=== PATIENT | female | born 1925 | race American Indian/Alaskan Native ===

== ENCOUNTER 2016-08-20 10:52 | Day surgery (SDC) | payer MEDICARE ==
[~2016-08-20 10:52] MED LIST: ANCEF/STERILE WATER 2 GM/20 ML 2 GM/20 ML SYRINGE IV NR; NACL 0.9% 1000 ML 1,000 ML IV SCH
[2016-08-20] MEDS ORDERED: HEPARIN/NS 5000 UNIT/500ML(CATH LAB) 1,000 ML IR ONE (13:20)
[2016-08-20] MEDS ORDERED: ANCEF/STERILE WATER 2 GM/20 ML 2 GM/20 ML SYRINGE IV ONE (13:21)
[2016-08-20] MEDS ORDERED: XYLOCAINE 2% INFILTRATI ONE (13:21)
[2016-08-20] MEDS ORDERED: HEPARIN 10,000 UNITS/10 ML ONE (13:21)
[2016-08-20] MEDS ORDERED: NACL 0.9% 500 ML 500 ML ONE ×2 (15:11→16:29)
[2016-08-20] MEDS: SUBLIMAZE ONE ×3 (15:23→15:50)
[2016-08-20] MEDS: VERSED ONE ×3 (15:23→15:56)
[2016-08-20] MEDS ORDERED: VERSED ONE (15:55)
[2016-08-20] MEDS ORDERED: SUBLIMAZE ONE (15:55)
[2016-08-20] MEDS ORDERED: NITROGLYCERIN SYRINGE 3 ML ONE (15:59)
--- NOTE | 2016-08-20 16:26 | Short Stay Summary ---
Short Stay Documentation Date of service: 08/20/16 Narrative H&P: See H&P - History H&P: obtained from office - Allergies and Medications Current Medications: Allergies No Known Allergies Allergy (Unverified 08/20/16 10:52) Home Medications Medication Instructions Recorded Confirmed Last Taken Type Allopurinol [Allopurinol] 100 mg PO BID 08/20/16 08/20/16 08/19/16 History Amlodipine Besylate [Amlodipine 10 mg PO DAILY 08/20/16 08/20/16 08/20/16 History Besylate] Aspirin [Adult Low Dose Aspirin EC] 81 mg PO DAILY 08/20/16 08/20/16 08/20/16 History Calcitonin,[place],Synthetic 1 spray INHALATION DAILY 08/20/16 08/20/16 08/19/16 History [Calcitonin-[place]] Esomeprazole Magnesium [NexIUM] 40 mg PO QDAY 08/20/16 08/20/16 08/19/16 History Gabapentin [Gabapentin] 300 mg PO TID 08/20/16 08/20/16 08/19/16 History HYDROcodone/ACETAMINOPHEN 1 tab PO Q6H 08/20/16 08/20/16 08/19/16 History [Hydrocodon-Acetaminophen 5-325] Hydralazine HCl [Apresoline TAB] 50 mg PO Q8HR 08/20/16 08/20/16 08/20/16 History Latanoprost [Latanoprost] 1 drops OU DAILY 08/20/16 08/20/16 08/19/16 History Memantine HCl [Memantine HCl] 10 mg PO DAILY 08/20/16 08/20/16 08/20/16 History Metoprolol Tartrate [Metoprolol 25 mg PO BID 08/20/16 08/20/16 08/19/16 History Tartrate] Multivitamin with Folic Acid [One 400 mcg PO DAILY 08/20/16 08/20/16 08/19/16 History Daily Multivitamin Tablet] glipiZIDE [glipiZIDE XL] 2.5 mg PO DAILY 08/20/16 08/20/16 08/19/16 History Active Medications Cefazolin Sodium (Ancef/Sterile Water 2 Gm/20 Ml) 2 gm in 20 mls @ 80 mls/hr IV PREOP NR PRN Reason: Protocol Stop: 08/20/16 23:59 Last Admin: 08/20/16 15:22 Dose: 20 mls Sodium Chloride (Nacl 0.9% 1000 Ml) 1,000 mls @ 42 mls/hr IV DIRECT SHAYLA - Brief post op/procedure progress note Date of procedure: 08/20/16 Pre-op diagnosis: PVD with Left Lower Extremity Ulceration Post-op diagnosis: same Procedure: 1. Ultrasound-Guided Access Right Common Femoral Artery 2. Aortogram with Diagnostic Left Lower Extremity Arteriogram (No Previous Films for Comparison) 3. Angioplasty of Left Anterior Tibial Artery with 3 x 150 Balloon 4. Angioplasty of Left SFA and Popliteal Arteries with 5 x 250 Balloon 5. Closure of Right Femoral Arteriotomy with 6 [place] Angio-Seal 6. Radiologic Supervision with Interpretation Anesthesia: local, other (IV sedation) Surgeon: PETER URIBE Estimated blood loss: minimal Pathology: none Condition: stable - Disposition Condition at discharge: Good Disposition: DISCHARGED TO HOME OR SELFCARE Short Stay Discharge Plan Activity: other (no strenuous activity for 24 hours) Wound: remove dressing (24 hours) Follow up with: PETER URIBE MD [Staff Physician] - 14 Days
--- NOTE | 2016-08-20 16:27 | Operative Report ---
Operative Report Operative Report: Date of Procedure: 08/20/2016 Pre-operative Diagnosis: PVD with Left Foot Ulceration Post-operative Diagnosis: Same Procedure(s): 1. Ultrasound-Guided Access Right Common Femoral Artery 2. Aortogram with Diagnostic Left Lower Extremity Arteriogram (No Previous Films for Comparison) 3. Angioplasty of Left Anterior Tibial Artery with 3 x 150 Balloon 4. Angioplasty of Left SFA and Popliteal Arteries with 5 x 250 Balloon 5. Closure of Right Femoral Arteriotomy with 6 [place] Angio-Seal 6. Radiologic Supervision with Interpretation Surgeon: Pako Cameron M.D. Timber Repairer: None Anesthesia: Local and IV sedation EBL: Minimal Counts: Correct Complications: None Condition: Stable Specimen: None Indication: The patient is an 89-year-old female with a history of fracture left hip requiring total hip replacement. During her hospitalization she developed a left heel decubitus ulcer. The wound has healed poorly. Physical exam she had no pedal pulses. It is felt that she would benefit from a diagnostic arteriogram and possible intervention. She and her family were given the risk, benefits, and alternative procedures and consented to procedure. Angiographic Findings: The aortogram demonstrated bilateral renal arteries appeared widely patent. The aorta is widely patent however was quite tortuous. Bilateral common iliac arteries were tortuous but widely patent. The left external iliac and hypogastric arteries were widely patent. The common femoral and profunda artery was widely patent. The SFA and popliteal arteries were diffusely diseased with multiple segmental stenosis very from 30-80%. The patient had no visible tibial vessels with no visible pedal vessels. After intervention the SFA and popliteal arteries were patent with approximately 10% residual stenosis and a below-knee segment. The anterior tibial artery was patent with approximately 10% residual stenosis and flow briskly into the dorsalis pedis artery which supplied the lateral flow to the entire foot. Description of Procedure: The patient is brought into the laborer wrecking and salvaging and laid in supine position. After she was adequately sedated her right groin was prepped and draped in normal sterile fashion. Ultrasound was used to identify the right common femoral artery and the overlying skin and soft tissue was anesthetized with lidocaine. A small stab incision was made and then micropuncture technique was used with ultrasound guidance to enter the right common femoral artery. A 5 [place] sheath was in place by Seldinger technique. An Omni Flush catheter was advanced to the level of the renal arteries and then an aortogram was performed. The Omni Flush catheter and a 0.035 advantage wire were advanced up and over the bifurcation and the left lower extremity runoff was performed with the previously described findings. The advantage wire was then advanced into the below-knee popliteal artery and a 6 [place] 90 cm destination sheath was advanced into the below-knee popliteal artery. A vertebral catheter and advantage wire were used to cannulate the occluded anterior tibial artery. Exchange the vertebral catheter for a 0.035 Crossing catheter and was able to advance the catheter and wire, and a subintimal plane, into the dorsalis pedis artery was confirmed by arteriogram. The dorsalis pedis artery did supply collateral flow through entire foot. The advantage wire was then exchanged for a V18 wire. Angioplasty of the entire anterior tibial artery was performed with a 3 x 150 balloon. I then performed balloon angioplasty of the entire popliteal and superficial femoral arteries using a 5 x 250 balloon. The final arteriogram demonstrated the SFA and popliteal arteries were patent with approximately 10% residual stenosis in the anterior tibial artery had brisk flow into the dorsalis pedis artery with approximately 10% residual stenosis. The sheath was then pulled into the right external iliac artery and a 0.035 Bentson wire was advanced to the aorta. A 6 [place] Angio-Seal was then used to close the right femoral arteriotomy. The patient tolerated the procedure well. All sponge, needle, and instrument counts were correct. The patient was taken to the recovery area in stable condition.
[2016-08-20] MEDS ORDERED: NACL 0.9% 1000 ML 1,000 ML IV SCH (17:00)
[2016-08-20] MEDS ORDERED: NACL 0.9% 500 ML 500 ML IV SCH (17:00)
[2016-08-20 19:01] VITALS: BP 180/82
--- NOTE | 2016-08-24 10:17 | Vascular Lab Report ---
MISCELLANEOUS VESSEL IDENTIFICATION: COMMENTS ON THE SCAN: The right common femoral artery was identified and under real-time ultrasound guidance was cannulated. IMPRESSION: Successful ultrasound guided arterial cannulation.
== END 2016-08-20 18:50 | disposition home or self-care (01) ==
LOC: OPU 10:52
PROVIDERS: ATTEND Surgery Vascular Surgery
DX: I70.244 Atherosclerosis of native arteries of left leg with ulceration of heel and midfoot (principal); L97.429 Non-pressure chronic ulcer of left heel and midfoot with unspecified severity; E11.9 Type 2 diabetes mellitus without complications; M19.90 Unspecified osteoarthritis, unspecified site; Z86.73 Personal history of transient ischemic attack (TIA), and cerebral infarction without residual deficits; Z79.84 Long term (current) use of oral hypoglycemic drugs; Z79.899 Other long term (current) drug therapy
CPT/HCPCS: 37224; 37228; 75625; 75710; 76937; 82962; C1725; C1760; C1769; C1887; J0690; J1644; J2250; J3010; J7040; Q9967